=== PATIENT | male | born 1975 | race Caucasian/White ===

== ENCOUNTER 2021-11-07 13:56 | Outpatient (CLI) | payer BC, SELFPAY ==
--- NOTE | ~2021-11-07 | US_ITS ---
EXAMINATION: US venous doppler LE RT DATE: 11/07/2021 17:02 INDICATION: I87.2 - Venous insufficiency (chronic) (peripheral) . Right calf swelling, pain and redne ss. Decreased capillary refill. TECHNIQUE: Grayscale images without and with compression and Doppler images of the right lower extrem ity veins were obtained. COMPARISON: None FINDINGS: The right common femoral vein, profunda (deep) femoral vein, femoral vein, popliteal vein, peroneal v ein, and posterior tibial veins are patent. IMPRESSION: 1. Patent right lower extremity veins. No evidence of deep venous thrombosis. Results reported telephonically to Dr. Mayers by Dr. Rivas at 5:45 PM on 11/07/2021. Reviewed, dictated and finalized at location K. IMPRESSION: 1. Patent right lower extremity veins. No evidence of deep venous thrombosis. Results reported telephonically to Dr. Mayers by Dr. Rivas at 5:45 PM on 11/08/19 22.
--- NOTE | ~2021-11-07 | US_ITS ---
EXAMINATION: US art doppler w press FLORA DATE: 11/07/2021 16:58 INDICATION: Peripheral vascular disease, unspecified. TECHNIQUE: Segmental pressures and plethysmographic and Doppler waveforms of the brachial and lower e xtremity arteries were obtained. COMPARISON: None. FINDINGS: Right and left brachial artery pressures of 119 mm Hg and 108 mm Hg, respectively, are concordant (no rmal difference <= 30 mmHg). The right high-thigh pressure index is 0.86 (normal > 1.2). The right ankle-brachial index (TARAN) is 1 .20 (normal >= 0.9-1.0). The right great toe-brachial index (TBI) is 0.01 (normal >= 0.65). Arterial Doppler waveforms are biphasic from common femoral artery to the ankle. The left high-thigh pressure index is 1.09. The left TARAN is 1.24. The left TBI is 0. Arterial Doppler waveforms are triphasic in common femoral artery and superficial femoral artery and biphasic in popl iteal artery and at the ankle. IMPRESSION: 1. Normal ABIs and decreased TBIs, consistent with arterial occlusive disease. Note that ABIs may be overestimated if arteries are calcified. Reviewed, dictated and finalized at location E.
== END 2021-11-07 13:57 | disposition home or self-care (01) ==
PROVIDERS: PCP Family Medicine; Visit Provider Family Medicine
DX: I73.9 Peripheral vascular disease, unspecified (principal); I82.411 Acute embolism and thrombosis of right femoral vein; I87.2 Venous insufficiency (chronic) (peripheral)
CPT/HCPCS: 93923; 93971